=== PATIENT | female | born 2000 | race Caucasian/White ===

== ENCOUNTER 2024-05-10 17:37 | Emergency (ER) | payer BC, SELFPAY ==
[2024-05-10 17:48] VITALS: BP 116/93
[2024-05-10 17:48] LABS: Glucose - Point of Care 98 mg/dl (70-99)
[2024-05-10 18:13] LABS: Urine Albumin Negative (Neg - Trace); Urine Bilirubin Negative (Negative); Urine Character Clear (Clear); Urine Color Straw; Urine Glucose Negative (Negative); Urine Ketone Negative (Negative); Urine Leukocyte Negative (Negative); Urine Nitrite Negative (Negative); Urine Occult Blood Negative (Negative); Urine Urobilinogen Negative (Neg - 1+)
[2024-05-10 18:22] LABS: HCG, Serum Qualitative Screen Negative
[2024-05-10 18:26] LABS: ALT (SGPT) 13 U/L (0-35); AST (SGOT) 19 U/L (14-36); Albumin 5.2 g/dl (3.5-5.0); Alkaline Phosphatase 42 U/L (38-126); Blood Urea Nitrogen 11 mg/dl (7-17); Calcium 9.8 mg/dl (8.4-10.2); Carbon Dioxide 22 mmol/L (22-30); Chloride 101 mmol/L (98-107); Glucose 110 mg/dl (70-99); Potassium 4.7 mmol/L (3.5-5.1); Sodium 138 mmol/L (135-145); Total Bilirubin 0.8 mg/dl (0.2-1.3); Total Protein 8.1 g/dl (6.3-8.2); eGFR > 60.00
[2024-05-10 18:27] LABS: COVID-19 Antigen Negative (Negative)
--- NOTE | 2024-05-10 21:52 | ED.GENMED ---
History of Present Illness
General
Chief Complaint: Abnormal Lab Value
Source: patient
Exam Limitations: none
Time Seen by Provider: 05/10/24 21:17
History of Present Illness
History of Present Illness:
This is a 23 year old female that comes in with c/o ketones in her urine. Patient states that she has been feeling fatigued and has body aches. States that this has been going on for a few days. States that she also felt like this a week ago on the
weekend but felt worse this past weekend. States that she has had low back pain. Today patient went to [facility] and she was told that she had ketones in her urine to come to the ER. States that both her mom and dad are diabetic. States that
she has had a low grade fever of 99 but she took Tylenol and it went away. States that she has had nausea and urinary frequency. States that she has a chronic headache and has had a headache for the past 2 days. Denies any chills, chest pain, SOB,
abd pain, vomiting, diarrhea, dizziness, urinary burning.
Past History
Past History
ED Past Medical History: Other (Migraines); Negative Asthma, HTN, Hypercholesterolemia or NIDDM
ED Past Surgical History: None
Social History
Tobacco: Non-smoker
Alcohol: Occasional
Personal: Single
Living: with family
Review of Systems
Review of Systems
All Other Systems: ROS reviewed and negative except as documented in HPI and ROS
Constitutional: Reports fever (Low grade); Denies chills
EENT: Reports no symptoms
Respiratory: Reports no symptoms; Denies cough or trouble breathing
Cardiac: Reports no symptoms; Denies chest pain
ABD/GI: Reports nausea; Denies abdominal pain, vomiting or diarrhea
: Reports frequency; Denies dysuria or urgency
Musculoskeletal: Reports back pain
Skin: Reports no symptoms
Neurological: Reports headache (Chronic); Denies dizzy
Psychiatric: Reports no symptoms
Phy Exam
General Physical Exam
General Presentation: well appearing and no apparent distress
General age: appears stated age
General Skin: warm and dry
General Habitus: normal
General Mental: alert
General Hydration: appears well hydrated
ENT Exam
ENT Exam: TM's normal, pharynx normal and neck supple
Eye Exam
Eye Exam: EOMI
Cardiovascular Exam
Cardiovascular Exam: regular rate/rhythm, no edema, no murmur and normal peripheral pulses
Pulmonary Exam
Pulmonary Exam: lungs clear, no respiratory distress, no rales, chest non tender, no crackles, no rhonchi, no wheezing and no cough
Gastrointestinal Exam
Gastrointestinal Exam: normal bowel sounds, non tender, soft, no organomegaly, no pulsatile mass and non distended
Musculoskeletal Exam
Musculoskeletal Exam: full ROM and no edema
Skin Exam
Skin Exam: normal color, warm/dry, no rash and no petechia
Psychiatric Exam
Psychiatric Exam: normal mood/affect
Course
Orders/Labs/Results
Orders:
Orders
05/10/24 17:51
Test Result ONCE
05/10/24 18:02
COVID-19 Antigen Urgent
Source: Nasal Swab
Comprehensive Metabolic Panel Urgent
HCG, Serum Qualitative Screen Urgent
TSH Reflex To Free T4 Urgent
Comment: ADD ON
05/10/24 18:06
Urinalysis Reflex To Culture Urgent
Date Specimen was Collected: 05/10/24
Time Specimen was Collected: 17:51
05/10/24 21:52
Add On- LAB Urgent
Tests Added?: TSH with Free T4
05/10/24 22:00
Complete Blood Count/With Diff Urgent
Abnormal Lab Results
05/10/24
18:02
Glucose 110 H mg/dl
(70-99)
Albumin 5.2 H g/dl
(3.5-5.0)
05/10/24 22:00
05/10/24 18:02
Glucose nonfasting. Albumin very slightly elevated. HCG negative. COVID negative. Urine negative for infection or ketones.
Vital Signs
Initial and Last Documented VS:
Initial Vital Signs
Temp Pulse Resp BP Pulse Ox
98.1 F 110 16 116/93 98
05/10/24 17:48 05/10/24 17:48 05/10/24 17:48 05/10/24 17:48 05/10/24 17:48
Last Documented Vital Signs
Temp Pulse Resp BP Pulse Ox
98.1 F 90 18 118/74 100
05/10/24 17:48 05/10/24 22:17 05/10/24 22:17 05/10/24 22:17 05/10/24 22:17
MDM/Problems Addressed
Differential Diagnosis Includes:
Viral syndrome. Fatigue
MDM/Problems Addressed:
This is a 23 year old female that comes in with c/o ketones in her urine after going [facility] today. States that she has been fatigued and had body aches 2 weekends ago and then this past weekend. States that she had some low back pain so
she went today to the [facility].
Will check labs. Urine , COVID
Back into see patient and Mom. Explained that her Blood work shows that her Blood sugar is 110 and her urine is negative. COVID is negative and her TSH is normal but on the low side. Patient to follow up with the family doctor for further evaluation
and fasting blood work. Patient to return with any concerns.
Chronic conditions affecting care:
NA
Acute Exacerbation and/or Progression of Chronic Illness:
NA
*Pulse Oximetry
Patient hypoxic: no
*EKG
Interpreted by ED Provider?: NA
Rate: EKG- N/A
*Resp Therapist Interpretation
Rate: Resp Therapist- N/A
*Critical Care Note
Total Time (30-74mins, 75-104mins- exclusive of procedures): Not Applicable
ED Attending Note
-
Portions of this chart may have been created with voice recognition software.� Occasional wrong word or��sound alike� substitutions may have occurred due to the inherent limitations of voice recognition software.
Discharge Plan
Departure
Patient Disposition: Home (Routine Discharge)
Date of Disposition: 05/10/24
Time of Disposition: 23:21
Patient with high blood pressure during this ER visit?: No
Condition: Good
Covid-19: Negative COVID-19
Discharge Problem:
Fatigue
Instructions: Fatigue (DC)
Referrals:
Tiffani Roldan, DO [Family Provider] - Follow up in 2-3 days
Activity Restrictions/Additional Instructions:
As discussed, your blood work shows that your blood sugar is 110. Your urine is negative for infection or ketones and you are negative for COVID. Your TSH is low but still in a normal range. Please follow up with the family doctor for fasting blood
work and further evaluation. Please increase your water intake to 8-8oz glasses daily. IF YOU HAVE ANY OTHER CONCERNS PLEASE RETURN TO THE EMERGENCY ROOM.
Interventions
Interventions:
*Risk Screen - Suicide Last Done: 05/10/24 17:48
*Neglect/Abuse Screening Last Done: 05/10/24 17:48
Discharge Date and Time
Print Language: FIJIAN
[2024-05-10 22:04] LABS: % Basophils 0.3 % (0-2); % Eosinophils 0.7 % (0-6); % Immature Granulocytes 0.3 % (0-0.5); % Lymphocytes 22.8 % (20.5-51.1); % Monocytes 6.8 % (1.7-9.3); % Neutrophils 69.1 % (42.2-75.2); Absolute Eosinophils 0.1 10^3/uL (0-0.7); Absolute Lymphocytes 2.1 10^3/uL (1.2-3.4); Absolute Monocytes 0.6 10^3/uL (0.1-0.6); Absolute Neutrophils 6.4 10^3/uL (1.4-6.5); Hematocrit 41.8 % (37.0-47.0); Mean Corp Hgb Conc. 35.9 g/dL (33.0-37.0); Mean Corpuscular Hgb 30.3 pg (27.0-31.0); Mean Corpuscular Volume 84.4 fL (81.0-99.0); Mean Platelet Volume 8.9 fL (7.4-10.4); Nucleated Red Blood Cells % 0 %; Platelet Count 258 10^3/uL (130-400); Red Blood Cell Count 4.95 10^6/uL (4.20-5.40); Red Cell Dist. Width 11.9 % (11.5-14.5); White Blood Cell Count 9.2 10^3/uL (4.8-10.8)
[2024-05-10 22:17] VITALS: BP 118/74
[2024-05-10 23:04] LABS: TSH Reflex To Free T4 0.68 uIU/ml (0.47-4.68)
== END 2024-05-10 23:26 | disposition home or self-care (01) ==
LOC: EMR 17:37
PROVIDERS: Emergency Medicine; EMERGENCY PHYSICIAN Emergency Medicine; FAMILY PHYSICIAN Family Medicine
DX: R53.83 Other fatigue (principal); M54.50 Low back pain, unspecified; R51.9 Headache, unspecified; R11.0 Nausea; R50.9 Fever, unspecified; R35.0 Frequency of micturition; R82.4 Acetonuria; Z11.52 Encounter for screening for COVID-19
CPT/HCPCS: 99283; 80053; 81003; 82962; 84443; 84703; 85025; 87811